=== PATIENT | female | born 1985 | race Caucasian/White ===

== ENCOUNTER → 2016-09-12 | Outpatient (CLI) | payer BC ==
--- NOTE | 2016-09-12 10:02 | US ---
EXAMINATION TYPE: US liver DATE OF EXAM: 09/12/2016 9:25 AM COMPARISON: No previous CLINICAL HISTORY: ABN Liver Function R94.5. Abdomen tenderness EXAM MEASUREMENTS: Liver Length: 16.5 cm Gallbladder Wall: 0.2 cm CBD: 0.4 cm Right Kidney: 10.6 x 4.3 x 5.3 cm TECHNOLOGIST IMPRESSION: Pancreas: visualized portions wnl, head limited by overlying midline bowel gas Liver: wnl Gallbladder: wnl. The gallbladder wall measures 2 mm. Evidence for sonographic Singletary's sign: no CBD: wnl IMPRESSION: NORMAL RIGHT UPPER QUADRANT ULTRASOUND.
== END | disposition home or self-care (01) ==
LOC: RADUSWWP 08:52
PROVIDERS: ATTEND Family Medicine
DX: R94.5 Abnormal results of liver function studies (principal)
CPT/HCPCS: 76705